=== PATIENT | female | born 1965 | race Caucasian/White ===

== ENCOUNTER → 2017-01-21 | Outpatient (CLI) | payer BC, OTHER ==
--- NOTE | 2017-01-21 08:54 | Diagnostic Imaging Report ---
Bilateral screening mammogram 2D views with tomosynthesis The current study was also evaluated with a Computer Aided Detection (CAD) system. Indication: Screening. No current complaints stated on the questionnaire. COMPARISON: 12/18/14 FINDINGS: The breasts are composed of heterogeneously dense parenchyma which would decrease mammographic sensitivity. There are benign-appearing calcifications seen. Allowing for technique and positional differences, no suspicious change is seen. IMPRESSION: Dense breasts with no definite change. ACR BI-RADS Category 2: Benign findings. Result letter will be mailed to the patient. Note: At least 10% of breast cancer is not imaged by mammography. Dictated by: Dictated on workstation # [id number]
== END ==
LOC: RAD 07:32
PROVIDERS: ATTEND Family Medicine
DX: Z12.31 Encounter for screening mammogram for malignant neoplasm of breast (principal)
CPT/HCPCS: 77067

== ENCOUNTER 2017-10-17 11:00 | Outpatient (CLI) | payer BC ==
[~2017-10-17] VITALS: Ht 162.6 cm; Wt 54.4 kg
[2017-10-17] MEDS ORDERED: LEVO100T PO (11:24)
== END 2017-10-17 14:16 ==
LOC: PREOP 11:00
PROVIDERS: ATTEND Internal Medicine
DX: Z01.818 Encounter for other preprocedural examination (principal); Z12.11 Encounter for screening for malignant neoplasm of colon

== ENCOUNTER 2017-10-21 07:10 | Day surgery (SDC) | payer BC ==
--- NOTE | 2017-10-05 06:04 | HISTORY AND PHYSICAL ---
DATE OF SERVICE: COLONOSCOPY HISTORY AND PHYSICAL DATE OF ADMISSION: 10/03/2017. HISTORY OF PRESENT ILLNESS: The patient is a 52-year-old white female referred by Dr. Corrigan for her first screening colonoscopy. She was seen in the office on 10/03/2017. She is deemed to be of average risk as she is not aware of any family history for colon cancer or colon polyps. She has noted about a 5-pound weight loss and is thin framed to begin with. Over the past several months that she has attributed to situational anxiety. She denies any associated fatigue, chills, fever or malaise. She also denies insomnia or any depressive symptoms. She has had no abdominal pain and has noted no blood in her stool. MEDICATIONS ON ADMISSION: Include Synthroid 100 mcg, but half a tablet on Tuesday and Tuesday and full tablet other days of the week, vitamin D 3000 units daily, and a multiple vitamin with calcium daily. PAST SURGICAL HISTORY: She did have a tonsillectomy and adenoidectomy as a child. PAST MEDICAL HISTORY: Significant for Galen's thyroiditis, and anxiety, reporting no other problems. FAMILY HISTORY: Father of alcoholism-related medical issues and also had prostate cancer at the age of 53. Mother is obese still living at the age of 72 with hypertension, hyperlipidemia and history of hyperparathyroidism. 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 PHYSICAL EXAMINATION: GENERAL: Reveals an articulate, well-kempt white female appears to be in no acute distress. VITAL SIGNS: She is roughly a 5 feet 2 inches tall and weighing 129.6 pounds, blood pressure 120/80 with a heart rate of 72 and regular. CHEST: Clear to auscultation. CARDIOVASCULAR: Reveals a regular rate and rhythm without murmur, S3 or S4. NECK: Revealed no JVD, adenopathy or bruits. ABDOMEN: Soft, supple without mass, organomegaly or tenderness. EXTREMITIES: Reveal no cyanosis, clubbing or edema. Medical record was reviewed. She did have an echocardiogram done in 2008 for reported heart murmur. Her systolic function was normal with ejection fraction 60%. Dr. Ruvalcaba did report moderate tricuspid insufficiency and elevated pulmonic pressure estimated at 50 mmHg. She does not exercise on a regular basis, but did not have a murmur today nor did she have any findings to suggest pulmonary hypertension. She denies shortness of breath, chest pain or any history of thromboembolic disease with no evidence for cyanosis, clubbing or edema on physical examination. ASSESSMENT: The patient was set up for screening colonoscopy on 10/21/2016. In her evaluation and review of electronic medical record, 45 minutes care time spent today. Prep instructions with Suprep kit were given and questions were answered. I thank you for the referral of this pleasant lady. Job ID: [id number] DocumentID: [id number] Dictated Date: 10/04/2017 11:35:26 Fireboat Operator Date: 10/04/2017 12:08:39 Dictated By: KAYLA MONTGOMERY MD MTDD
[~2017-10-21] VITALS: Ht 162.6 cm; Wt 54.4 kg
[~2017-10-21 07:10] MED LIST: LEVO100T PO
[2017-10-21] MEDS ORDERED: D5 LR IV SOLUTION 1,000 ML IV STA (07:28)
[2017-10-21] MEDS ORDERED: LIDOCAINE JELLY 2% (XYLOCAINE) 5 ML TUBE TOP PRN (07:30)
[2017-10-21] MEDS ORDERED: D5 LR IV SOLUTION 1,000 ML IV SCH (07:30)
[2017-10-21] MEDS ORDERED: NALOXONE 0.4 MG/ML 1 ML (NARCAN) VIAL IV PRN (07:30)
[2017-10-21] MEDS ORDERED: MIDAZOLAM 2 MG/2 ML (VERSED) VIAL IVP PRN (07:30)
[2017-10-21] MEDS ORDERED: FLUMAZENIL (ROMAZICON) 0.1 MG/ML 5 ML VIAL INJ PRN (07:30)
[2017-10-21] MEDS ORDERED: NALOXONE 0.4 MG/ML 1 ML (NARCAN) VIAL IVP PRN (07:30)
[2017-10-21] MEDS ORDERED: fentaNYL INJECTION 100 MCG/2 ML AMP IVP PRN (07:30)
[2017-10-21] MEDS ORDERED: LIDOCAINE JELLY 2% (XYLOCAINE) 5 ML TUBE MM PRN (07:30)
[2017-10-21] MEDS ORDERED: HURRICAINE EXT TUBE (BENZOCAINE) XX PRN (07:30)
[2017-10-21] MEDS ORDERED: D5 LR IV SOLUTION 1,000 ML IV ONE (07:35)
[2017-10-21 07:38] VITALS: BP 108/70
[2017-10-21] MEDS ORDERED: FLUMAZENIL (ROMAZICON) 0.1 MG/ML 5 ML VIAL IV PRN (07:45)
--- NOTE | 2017-10-21 08:01 | Pre-Op Note & Conscious Sedat ---
Pre-Operative Progress Note H&P Reviewed The H&P was reviewed, patient examined and no changes noted. Date H&P Reviewed: Oct 21, 2017 Time H&P Reviewed: 08:00 Conscious Sedation Pre-Proced ASA Class: 1, 2 Airway Mallampati Classification: ([place] appropriate class) I. II. III, IV Lungs Heart ASA score ASA 1: a normal healthy patient ASA 2: a patient with a mild systemic disease (mid diabetes, controlled hypertension, obesity ASA 3: a patient with a severe systemic disease that limits activity (angina , COPD, prior Myocardial infarction) ASA 4: a patient with an incapacitating disease that is a constant threat to life (CHF, renal failure) ASA 5: a moribund patient not expected to survive 24 hrs. (ruptured aneurysm) ASA 6: a declared brain patient whose organs are being harvested. For emergent operations, add the letter E after the classification Grade 1 Sedation Plan: Analgesia, Amnesia, Plan communicated to team members, Discussed options with patient/fam, Discussed risks with patient/fam Note The patient is an appropriate candidate to undergo the planned procedure, sedation, and anesthesia. The patient immediately re-assessed prior to indication. KAYLA MONTGOMERY MD Oct 21, 2017 08:01
[2017-10-21] MEDS ORDERED: LIDOCAINE JELLY 2% (XYLOCAINE) 5 ML TUBE ONE (08:22)
[2017-10-21] MEDS ORDERED: MIDAZOLAM 2 MG/2 ML (VERSED) VIAL ONE ×3 (08:22→09:04)
[2017-10-21] MEDS ORDERED: fentaNYL INJECTION 100 MCG/2 ML AMP ONE ×2 (08:22→08:55)
[2017-10-21] MEDS: fentaNYL INJECTION 100 MCG/2 ML AMP IV PRN ×4 (08:44→09:02)
[2017-10-21] MEDS: MIDAZOLAM 2 MG/2 ML (VERSED) VIAL IV PRN ×3 (08:45→09:05)
[2017-10-21] MEDS ORDERED: ONDANSETRON 4 MG/2 ML (SDV) Z0FRAN ONE (08:55)
[2017-10-21] MEDS ORDERED: ONDANSETRON 4 MG/2 ML (SDV) Z0FRAN IVP ONE (09:00)
[2017-10-21 09:55] VITALS: BP 93/48
[2017-10-21 10:25] VITALS: BP 108/68
[2017-10-21 11:20] VITALS: BP 108/68
--- NOTE | 2017-10-22 02:27 | OPERATIVE REPORT ---
DATE OF SERVICE: 10/21/2017 COLONOSCOPY INDICATION FOR PROCEDURE: Screening colonoscopy. DESCRIPTION OF PROCEDURE: The patient is placed in the left lateral decubitus position. Prior to undergoing colonoscopy, digital rectal evaluation was performed. Anal sphincter tone was normal and the perianal reflexes intact. No abnormalities were noted on digital inspection of the anal canal or distal rectal vault. The colonoscope was then inserted into the rectum and under direct visualization advanced in to the cecum. The cecum was identified by identification of the ileocecal valve and cecal strap. Photographic documentation was obtained. Careful inspection was made as the colonoscope was withdrawn. FINDINGS: There was no evidence for internal or external hemorrhoids and the rectum, sigmoid colon, descending colon, splenic flexure, transverse colon, hepatic flexure and ascending colon were unremarkable. One diminutive 2 mm sessile cecal polyp was noted. It was then biopsied, ablated and submitted for histopathology with no subsequent blood loss. ASSESSMENT AND PLAN. One diminutive cecal polyp was removed via hot forceps today as noted above. As long as there is no surprise on histopathology, would just advocate consideration for repeat screening colonoscopy in 10 years as the patient is not aware of any family history for colon cancer. No other abnormalities noted on today's procedure. The patient has been troubled by increased flatulence with some intermittent abdominal bloating. Did discuss lactose intolerance issues as her history suggests this possibility. I advised that she can try initiating probiotic therapy as well. Culturelle 1 to 2 capsules daily and give it a month to see if this helps if lactose avoidance is not helpful. I thank you for the referral of this pleasant lady. Sincerely, Job ID: [id number] DocumentID: [id number] Dictated Date: 10/21/2017 12:39:10 Roll Over Loader Date: 10/21/2017 16:26:22 Dictated By: KAYLA MONTGOMERY MD [facility]
--- OUTSIDE RECORDS SUMMARY | 2017-10-23 03:56 | XMS REPORT | Continuity of Care Document ---
Author Author [facility] Organization [facility] Address Unknown Phone Unavailable Allergies Active Description Code Type Severity Reaction Onset Reported/Identified Relationship to Patient Clinical Status Yes Sulfa (Sulfonamide Antibiotics) [id number] Drug Allergy Unknown RASH 2017 Medications There is no data. Problems Date Dx Coded Attending Type Code Diagnosis Diagnosed By 01/18/2017 KWABENA HICKS MD Ot V76.12 OTH SCREEN MAMMO-MALIGN NEOPLASM OF [place] 02/02/2017 ADA FERRER MD Ot Z12.31 ENCNTR SCREEN MAMMOGRAM FOR MALIGNANT NE 02/02/2017 ADA FERRER MD Ot Z12.31 ENCNTR SCREEN MAMMOGRAM FOR MALIGNANT NE 02/02/2017 ADA FERRER MD Ot Z12.31 ENCNTR SCREEN MAMMOGRAM FOR MALIGNANT NE 02/04/2017 ADA FERRER MD Ot Z12.31 ENCNTR SCREEN MAMMOGRAM FOR MALIGNANT NE 10/17/2017 KAYLA MONTGOMERY MD Ot Z01.818 ENCOUNTER FOR OTHER PREPROCEDURAL EXAMIN 10/17/2017 KAYLA MONTGOMERY MD Ot Z12.11 ENCOUNTER FOR SCREENING FOR MALIGNANT NE 10/19/2017 KWABENA HICKS MD Ot V76.12 OTH SCREEN MAMMO-MALIGN NEOPLASM OF [place] 10/19/2017 ADA FERRER MD Ot Z12.31 ENCNTR SCREEN MAMMOGRAM FOR MALIGNANT NE 10/21/2017 KWABENA HICKS MD Ot V76.12 OTH SCREEN MAMMO-MALIGN NEOPLASM OF [place] 10/21/2017 ADA FERRER MD Ot Z12.31 ENCNTR SCREEN MAMMOGRAM FOR MALIGNANT NE Procedures There is no data. Results There is no data. Encounters ACCT No. Visit Date/Time Discharge Status Pt. Type Provider Facility Loc./Unit Complaint [id number] 10/21/2017 07:10:00 10/21/2017 11:20:00 DIS Outpatient KAYLA MONTGOMERY MD [facility] ENDO SCREENING [id number] 10/17/2017 11:00:00 10/17/2017 14:16:00 DIS Outpatient KAYLA MONTGOMERY MD [facility] PREOP COLONOSCOPY [id number] 01/21/2017 07:32:00 01/21/2017 23:59:59 CLS Outpatient ADA FERRER MD [facility] RAD SCREENING Z12.31 [id number] 12/18/2014 10:01:00 12/18/2014 23:59:59 CLS Outpatient KWABENA HICKS MD [facility] RAD SCREENING [id number] 10/19/2017 14:28:00 Document Registration
--- OUTSIDE RECORDS SUMMARY | 2017-10-23 03:56 | XMS REPORT | Clinical Summary ---
Author Author [facility] Organization [facility] Address Unknown Phone Unavailable Care Team Providers Care Natural Resources Technician Name Role Phone PCP Unavailable Source Comments Some departments are not documenting in the electronic medical record. If you do not see the information that you expected, contact Release of Information in the Health Information Management department at [phone] for further assistance in locating additional records.[facility] Allergies Not on File Current Medications Not on file Active Problems Not on file Social History Tobacco Use Types Packs/Day Years Used Date Never Assessed Sex Assigned at Date Recorded Not on file Last Filed Vital Signs Not on file Plan of Treatment Health Maintenance Due Date Last Done Comments PHYSICAL (COMPREHENSIVE) 1974 EXAM PERTUSSIS VACCINE 1978 HIV SCREENING 1982 TETANUS VACCINE 1984 CERVICAL CANCER SCREENING 1997 BREAST CANCER SCREENING 2007 COLORECTAL CANCER 2017 SCREENING INFLUENZA VACCINE 04/10/2018 Results Not on filefrom Last 3 Months
== END 2017-10-21 11:20 | disposition home or self-care (01) ==
LOC: ENDO 07:10
PROVIDERS: ATTEND Internal Medicine
DX: Z12.11 Encounter for screening for malignant neoplasm of colon (principal); D12.0 Benign neoplasm of cecum; E06.3 Autoimmune thyroiditis; F41.9 Anxiety disorder, unspecified; R14.3 Flatulence; R14.0 Abdominal distension (gaseous); Z79.899 Other long term (current) drug therapy
CPT/HCPCS: 88305

== ENCOUNTER → 2018-10-23 | Outpatient (CLI) | payer BC ==
--- NOTE | 2018-10-23 20:55 | Diagnostic Imaging Report ---
INDICATION: Routine screening. Comparison is made with prior mammogram from 01/21/2017 and 12/18/2014. 2-D and 3-D bilateral screening mammography was performed CAD. Current study was also evaluated with a Computer Aided Detection (CAD) system. Both breasts remain heterogeneously dense, limiting the sensitivity of mammography. Benign calcification left breast is again noted. No mass or malignant appearing microcalcifications are seen. The axillae are unremarkable. IMPRESSION: No mammographic features suspicious for malignancy are identified. ACR BI-RADS Category 2: Benign findings. Result letter will be mailed to the patient. Note: At least 10% of breast cancer is not imaged by mammography. Dictated by: Dictated on workstation # [id number]
== END ==
LOC: RAD 14:30
PROVIDERS: ATTEND Family Medicine
DX: Z12.31 Encounter for screening mammogram for malignant neoplasm of breast (principal)
CPT/HCPCS: 77067

== ENCOUNTER → 2020-12-23 | Outpatient (CLI) | payer BC ==
--- NOTE | 2020-12-23 20:13 | Diagnostic Imaging Report ---
INDICATION: Routine screening. COMPARISON is made with prior mammograms from 10/23/2018 and 01/21/2017. 2-D and 3-D bilateral screening mammography was performed with CAD. Both breasts remain heterogeneously dense, limiting the sensitivity of mammography. The parenchymal pattern is stable. No mass or malignant appearing microcalcifications are seen. There are benign calcifications in the left breast. Axillae are unremarkable. IMPRESSION: BI-RADS Category 2 No mammographic features suspicious for malignancy are identified. ACR BI-RADS Category 2: Benign findings. Result letter will be mailed to the patient. Note: At least 10% of breast cancer is not imaged by mammography. Dictated by: Dictated on workstation # [id number]
== END ==
LOC: RAD 14:45
PROVIDERS: ATTEND Family Medicine
DX: Z12.31 Encounter for screening mammogram for malignant neoplasm of breast (principal)
CPT/HCPCS: 77063; 77067

== ENCOUNTER → 2021-12-24 | Outpatient (CLI) | payer BC ==
--- NOTE | 2021-12-24 13:54 | Diagnostic Imaging Report ---
Indication: Routine screening. Comparison is made with prior mammograms from 12/23/2020 and 10/23/2018. 2-D and 3-D bilateral screening mammography was performed with CAD. Both breasts are heterogeneously dense, limiting the sensitivity of mammography. No mass or malignant-appearing microcalcifications are seen. Benign calcification on the left is noted. Axillae are unremarkable. IMPRESSION: BI-RADS Category 2 No mammographic features suspicious for malignancy are identified. ACR BI-RADS Category 2: Benign findings. Result letter will be mailed to the patient. Note: At least 10% of breast cancer is not imaged by mammography. Dictated by: Dictated on workstation # [id number]
== END ==
LOC: RAD 10:45
PROVIDERS: ATTEND Family Medicine
DX: Z12.31 Encounter for screening mammogram for malignant neoplasm of breast (principal)
CPT/HCPCS: 77063; 77067

== ENCOUNTER → 2022-12-13 | Outpatient (CLI) | payer BC ==
--- NOTE | 2022-12-13 12:13 | Diagnostic Imaging Report ---
INDICATION: Routine screening. COMPARISON: 12/24/2021 and 12/23/2020. TECHNIQUE: 2D and 3D bilateral screening mammography was performed with CAD. FINDINGS: Both breasts are heterogeneously dense, limiting the sensitivity of mammography. No mass or malignant-appearing microcalcifications are seen. There is benign calcification on the left. The axillae are unremarkable. IMPRESSION: No mammographic features suspicious for malignancy are identified. ACR BI-RADS Category 2: Benign findings. Result letter will be mailed to the patient. Note: At least 10% of breast cancer is not imaged by mammography. Dictated by: Dictated on workstation # [id number]
== END ==
LOC: RAD 07:08
PROVIDERS: ATTEND Family Medicine
DX: Z12.31 Encounter for screening mammogram for malignant neoplasm of breast (principal)
CPT/HCPCS: 77063; 77067